=== PATIENT | female | born 1955 | race Caucasian/White ===

== ENCOUNTER 2020-02-28 07:15 | Inpatient (IN) | payer OTHER ==
[~2020-02-28] VITALS: Ht 157.5 cm; Wt 59.9 kg
[~2020-02-28 07:15] MED LIST: AVAPRO75 MG PO; MACROBID 100 M100 MG PO; PROTONIX20 MG PO; TRAMADOL HCL-AP1 TAB PO; TRILEPTAL150 MG PO; TRILEPTAL300 MG PO; ULTRACET PO
[2020-02-28] MEDS ORDERED: ZONEGRAN100 MG PO (10:00)
[2020-02-28] MEDS ORDERED: COZAAR25 MG PO (10:00)
[2020-02-28] MEDS ORDERED: CLARITIN10 M1 PO (10:00)
[2020-02-28] MEDS ORDERED: [UNRECOGNIZED DRUG - OTHER] PO (10:01)
[2020-02-28] MEDS ORDERED: ATORVASTATIN CA40 MG PO (10:01)
[2020-02-28] MEDS ORDERED: SPIRIV IH (10:02)
[2020-02-28] MEDS ORDERED: SYMBICORT 16010.2 GM IH (10:02)
[2020-02-28] MEDS ORDERED: LIBRAX PO (10:03)
[2020-02-28] MEDS ORDERED: CENTRUM ADULTS1 EACH PO (10:03)
[2020-03-07] MEDS ORDERED: CHLORDIAZEPOXID10 MG (08:26)
[2020-03-07] MEDS ORDERED: SPIRIVA RESPIMAT4 G1 (08:28)
[2020-03-07] MEDS ORDERED: ACTICAL SOFTGE1 EACH (08:33)
[2020-03-08] MEDS ORDERED: DUI500 PO (13:23)
[2020-03-08] MEDS ORDERED: PERCOCET 5-3251 EACH PO (13:23)
[2020-03-08] MEDS ORDERED: ELIQUIS2.5 MG PO (13:23)
== END 2020-03-08 17:16 | DRG 468 ==
LOC: O/R 03-06 05:30 → SURH 03-06 05:30 → SURG 03-06 05:30 → SURH 03-06 07:00 → SURG 03-06 10:49 → SURH 03-06 17:00
PROVIDERS: ADMIT Orthopaedic Surgery; ATTEND Orthopaedic Surgery
PROC: 0SWC0JZ Revision of Synthetic Substitute in Right Knee Joint, Open Approach (ICD-10-PCS; principal; 2020-03-06 07:00)
DX: T84.092A Other mechanical complication of internal right knee prosthesis, initial encounter (principal); J44.9 Chronic obstructive pulmonary disease, unspecified; I11.9 Hypertensive heart disease without heart failure; J45.20 Mild intermittent asthma, uncomplicated; G40.909 Epilepsy, unspecified, not intractable, without status epilepticus

== ENCOUNTER 2021-03-11 08:51 | Outpatient (CLI) | payer OTHER ==
[~2021-03-11 08:51] MED LIST changes: +ACTICAL SOFTGE1 EACH; +ATORVASTATIN CA40 MG PO; +CENTRUM ADULTS1 EACH PO; +CHLORDIAZEPOXID10 MG; +CLARITIN10 M1 PO; +COZAAR25 MG PO; +DUI500 PO; +ELIQUIS2.5 MG PO; +LIBRAX PO; +PERCOCET 5-3251 EACH PO; +SPIRIV IH; +SPIRIVA RESPIMAT4 G1; +SYMBICORT 16010.2 GM IH; +ZONEGRAN100 MG PO; +[UNRECOGNIZED DRUG - OTHER] PO
[2021-03-12] MEDS ORDERED: ULTRACET PO (08:42)
[2021-03-12] MEDS ORDERED: MACROBID 100 M100 MG PO (08:42)
== END 2021-03-11 08:57 | disposition home or self-care (01) ==
LOC: LAB 08:51
PROVIDERS: ATTEND Obstetrics & Gynecology Gynecology
DX: Z20.828 Contact with and (suspected) exposure to other viral communicable diseases (principal)

== ENCOUNTER 2021-03-12 06:00 | Day surgery (SDC) | payer OTHER ==
[2021-03-12] MEDS ORDERED: ULTRACET PO (08:42)
[2021-03-12] MEDS ORDERED: MACROBID 100 M100 MG PO (08:42)
== END 2021-03-12 11:30 | disposition home or self-care (01) ==
LOC: CIR.AMB 06:00
PROVIDERS: ATTEND Obstetrics & Gynecology Gynecology
DX: N81.11 Cystocele, midline (principal); N81.5 Vaginal enterocele